=== PATIENT | male | born 1990 | race African-American/Black ===

== ENCOUNTER 2025-01-22 06:09 | Emergency (ER) | payer MEDICARE, MEDICAID ==
[~2025-01-22] VITALS: Ht 165.1 cm; Wt 120.0 kg
[2025-01-22 06:13] VITALS: O2SAT 99
[2025-01-22 07:38] VITALS: TEMP 36.9
[2025-01-22 08:00] LABS: HEMATOCRIT. 46.7 % (42.0-52.0); HEMOGLOBIN. 15.4 g/dL (14.0-18.0); MEAN CORPUSCULAR HGB CONC 32.9 g/dL (31.0-37.0); MEAN PLATELET VOLUME 9.5 fl (7.4-10.4); PLATELET 177 x1000/uL (130-400); RED BLOOD CELL COUNT 5.31 mill/uL (4.7-6.1); RED CELL DISTRIBUTION WIDTH 13.4 % (11.6-14.6); WHITE BLOOD COUNT 15.5 x1000/uL (4.5-11.0)
[2025-01-22 08:04] LABS: DIFFERENTIAL COMMENT 1
[2025-01-22 08:11] LABS: CHLORIDE 107 mEq/L (98-107); POTASSIUM 3.5 mEq/L (3.5-5.1); SODIUM 142 mEq/L (136-145)
[2025-01-22 08:12] LABS: CALCIUM 10.1 mg/dL (8.7-10.4); CARBON DIOXIDE 22 mEq/L (21-32)
[2025-01-22 08:16] LABS: CLARITY URINE CLEAR (CLEAR); COLOR URINE YELLOW (YELLOW); GLUCOSE URINE NEGATIVE (NEGATIVE); KETONES URINE TRACE (NEGATIVE); LEUKOCYTE ESTERASE URINE NEGATIVE (NEGATIVE); NITRITE URINE NEGATIVE (NEGATIVE); OCCULT BLOOD URINE TRACE (NEGATIVE); PROTEIN URINE 4+ (NEGATIVE); SPECIFIC GRAVITY URINE 1.025 (1.005-1.030); UROBILINOGEN URINE 0.2 E.U./dL (0.2-1.0)
[2025-01-22 08:17] LABS: CREATININE 1.4 mg/dL (0.6-1.3); GLUCOSE 88 mg/dL (70-105); UREA NITROGEN BLOOD 15 mg/dL (9-23)
[2025-01-22 08:25] LABS: HYALINE CASTS URINE 0-5 /lpf
[2025-01-22 08:26] LABS: BACTERIA URINE 1+; RBC URINE NONE SEEN /hpf (0-2); SQUAMOUS EPITHELIAL CELL URINE NONE SEEN /lpf (RARE/1+); YEAST URINE NONE SEEN
[2025-01-22 08:44] LABS: PLATELET ESTIMATE NORMAL
[2025-01-22] MEDS ORDERED: CEPH500C2 MT (08:56)
[2025-01-22 09:10] VITALS: BP 151/91; PULSE 91; RESP 12; O2SAT 99
== END 2025-01-22 09:43 | disposition home or self-care (01) ==
LOC: ER 06:09
DX: R33.9 Retention of urine, unspecified (principal); R10.9 Unspecified abdominal pain; Z79.899 Other long term (current) drug therapy
CPT/HCPCS: 36415; 80048; 81003; 85025; 99283